=== PATIENT | male | born 1950 | race Caucasian/White ===

== ENCOUNTER → 2016-11-30 | Outpatient (CLI) | payer OTHER ==
[~2016-11-30] MED LIST: ACET-1256 PO; ASPEC325 PO; ATOR10TA88 PO; IBUP-1050 PO; LEVO88TA PO; MULT-506 PO; NPR/250 PO
== END | disposition home or self-care (01) ==
LOC: C.LABSPEC 16:05
PROVIDERS: ATTEND Urology
DX: N20.0 Calculus of kidney (principal); R82.8 Abnormal findings on cytological and histological examination of urine